=== PATIENT | male | born 1970 | race Caucasian/White ===

== ENCOUNTER 2023-12-07 13:07 | Outpatient (REF) | payer OTHER, SELFPAY ==
--- NOTE | ~2023-12-07 | MR_ITS ---
MRI OF THE BRAIN WITHOUT IV CONTRAST INDICATION: Parkinson's. COMPARISON: Brain MRI 12/07/2017. TECHNIQUE: Multiplanar multisequence MR imaging of the brain was obtained without IV contrast. FINDINGS: There is no hydrocephalus, extra-axial surface collection, or herniation. There is mild chronic microangiopathy. The major flow voids at the skull base are preserved. There is no acute infarct on diffusion-weighted imaging. There is no intracranial hemorrhage on the gradient recalled echo acquisition. The midline structures are normal. The cerebellar tonsils are normally positioned. The cerebellum and brainstem are normal. The craniocervical junction is normal. Osseous marrow signal intensity is homogenous. The visualized soft tissues are unremarkable. The right maxillary sinus is completely opacified with dense inspissated material. Moderate mucosal thickening within the ethmoid air cells bilaterally and mild mucosal thickening throughout the remaining paranasal sinuses. MR/MR head/brain wo con IMPRESSION: - No acute intracranial findings. There is mild chronic microangiopathy. - The right maxillary sinus is completely opacified with dense inspissated material. Moderate mucosal thickening within the ethmoid air cells bilaterally and mild mucosal thickening throughout the remaining paranasal sinuses.
== END 2023-12-07 13:08 | disposition home or self-care (01) ==
LOC: HO.MRI 13:07
PROVIDERS: PCP Physician Assistant Medical; Visit Provider Psychiatry & Neurology Neurology
DX: G20.A1 Parkinson's disease without dyskinesia, without mention of fluctuations (principal)
CPT/HCPCS: 70551

== ENCOUNTER 2025-02-05 13:36 | Outpatient (AMB) | payer OTHER, SELFPAY ==
--- NOTE | 2025-02-05 13:52 | MHC.OFFVIS ---
Intake Visit Reasons: Parkinson's Allergies No Known Allergies Allergy (Verified 01/30/25 09:03) Medication List - Last Reconciled 02/05/25 by Carolyne Barcenas MD atorvastatin 80 mg PO DAILY carbidopa-levodopa 25-100 mg (Sinemet) 2 tabs PO QID 90 days cyclobenzaprine 10 mg PO TID PRN enalapril maleate 10 mg PO DAILY ibuprofen 800 mg PO Q6H PRN primidone 50 mg PO BID HPI Comments Details: 54 years old man with history of polydrug abuse, depression and anxiety disorder, and symptoms of tremor, rigidity, dystonia, gait disorder, and stiffness somewhat suggestive of multiple system atrophy type of pathology. [facility] Medical History (Updated 02/05/25 @ 14:05 by Carolyne Barcenas MD) Parkinsonism Multiple system atrophy Dystonia Unspecified abnormalities of gait and mobility Tremor Depression with anxiety H/O polydrug abuse Physical Exam Neuro Other: Mental Status: Alert and oriented to person, place, and time. Normal attention. Normal spontaneous speech, fluency, and comprehension. No obvious issues with mood and memory. Affect is appropriate. Cranial Nerves: CN II: Visual adamson full to confrontation, visual acuity intact. CN III, IV, : Pupils equal, round, reactive to light and accommodation. Extraocular movements are normal. CN V: Facial sensation is normal. CN VII: Facial movements symmetrical. CN VIII: Hearing intact to bedside conversation is normal. CN IX, X: Palate elevates symmetrically. CN XI: Shoulder shrug and head turn symmetrical. CN XII: Tongue midline without atrophy or fasciculations. Moderate cogwheeling rigidity in right upper extremity with almost continuous hand and arm tremor. Mildly decreased facial expression blinking. He is in a wheelchair. At home he is able to ambulate with a walker Extrapyramidal: Full facial expressions and blinking. No rigidity. Movements are appropriate with no tremor or abnormality. Speech: Normal; no dysarthria or tremor. Assessment & Plan Assessment & Plan (1) Parkinsonism: Comment: MRI brain WO at [facility] in December 2023: WNL MRI brain at in December 2014: WNL MRI C spine at [facility] in 2014: OK. Code(s): G20.C - Parkinsonism, unspecified Category: Medical Qualifiers: Parkinsonism type: unspecified Qualified Code(s): G20.C - Parkinsonism, unspecified (2) Dystonia: Code(s): G24.9 - Dystonia, unspecified Category: Medical (3) Tremor: Code(s): R25.1 - Tremor, unspecified Category: Medical Plan Impression: a: Parkinsonian syndrome with bradykinesia, tremor, dystonic posturing, and difficulty walking b: Mixed tremor c: Mood disorder Rec: a: Carbidopa/levodopa 25/100, 2, four times a day, which are helping b: Primidone 50mg twice a day Medications: New primidone 50 mg PO BID 180 tabs 1RF Refilled carbidopa-levodopa 25-100 mg (Sinemet) 2 tabs PO QID 720 tabs 1RF 90 days Coding Level of Care Code Tele Est Pt Level 4 (12567) Diagnoses Parkinsonism, unspecified Parkinsonism type G20.C Parkinsonism type: unspecified Dystonia G24.9 Tremor R25.1
--- OUTSIDE RECORDS SUMMARY | 2025-02-05 14:12 | XMS_ITS ---
Author Name [facility] Organization Unknown Care Team Organization Name Specialty Phone Email Start Date End Da nikko [facility] Jere Stewart Primary [facility] 05/17/2022
--- OUTSIDE RECORDS SUMMARY | 2025-02-05 14:12 | XMS_ITS | Clinical Summary ---
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 03/22/20 24 Active carbidopa-levodo pa CR (SINEMET CR) 50-200 mg per CR tablet Take 1 Tablet by mouth. 04/03/20 15 Active mo/Non-Adher Bndg/petrolatum (GAUZE PADS AND DRESSINGS TOP) 1 Units by Does not apply route daily. 03/22/20 24 Active diaper,brief,kevin lt,disposable misc 1 Each by Does not apply route 5 times daily. 12/03/19 16 Active methadone HCl (METHADONE ORAL) Take 66 mg by mouth daily. Active mo/Non-Adher Bndg/petrolatum (GAUZE PADS AND DRESSINGS TOP) 1 Units by Does not apply route daily. 03/22/20 24 Active lactose-reduced food (NUTRITIONAL SUPPLEMENT ORAL) Take 3 Cans by mouth daily. RANDELL-99 3 cans per day 90 cans per month 11 refills Prefers chocolate And vanilla flavors 07/27/19 24 Active primidone (MYSOLINE) 50 mg tablet Take 1 tablet by mouth 2 times daily. 02/12/20 21 Active cyclobenzaprine (FLEXERIL) 10 mg tabletIndication s:Essential (primary) hypertension TAKE 1 TABLET BY MOUTH THREE TIMES A DAY NEEDED FOR MUSCLE SPASM 270 tablet 10/22/19 25 Active atorvastatin (LIPITOR) 80 mg tablet Take 1 tablet (80 mg total) by mouth 1 (one) time each day. 90 tablet 1 10/26/19 25 Active enalapril (VASOTEC) 10 mg tablet Take 1 tablet (10 mg total) by mouth 1 (one) time each day. 90 tablet 1 10/26/19 25 Active sildenafiL (VIAGRA) 100 mg tablet Take 0.5 Tablets by mouth as needed for Erectile Dysfunction. 10 tablet 5 10/26/19 25 Active levothyroxine (SYNTHROID, LEVOTHROID) 75 mcg tablet Take 1 tablet (75 mcg total) by mouth 1 (one) time each day. 30 each 5 10/29/19 25 Active ibuprofen (ADVIL,MOTRIN) 800 mg tabletIndication s:Essential (primary) hypertension TAKE 1 TABLET BY MOUTH EVERY 6 HOURS NEEDED FOR PAIN 90 tablet 01/23/20 25 Active ibuprofen (ADVIL,MOTRIN) 800 mg tabletIndication s:Essential (primary) hypertension TAKE 1 TABLET BY MOUTH EVERY 6 HOURS NEEDED FOR PAIN 360 tablet 1 07/09/20 24 025 Discontinued Active Problems Problem Noted Date Diagnosed Date Subclinical hypothyroidism 02/03/2020 Impaired fasting blood sugar 09/13/2016 Sebaceous cyst 03/07/2016 Fecal incontinence 01/25/2016 Vascular malformation of liver 01/25/2016 Chronic hepatitis C without hepatic coma (CMS/HCC V24, CMS/HCC V28) 12/14/2015 Overview (07/16/2024): Chronic Hepatitis C Genotype 1A. Tx Started 07/16/16 Harvoni 90-400 mg. Take 1 tab daily for 12 Weeks. End Date 10/15/16. SVR Achieved 01/31/17 Low back pain without sciatica 11/02/2015 Parkinson's disease (tremor, stiffness, slow motion, unstable posture) (CMS/HCC V24, CMS/HCC V28) 10/14/2015 Ataxia 03/18/2015 Overview (07/16/2024): Seeing Dr. Barcenas started on carbidopa/levodopa Spasticity 03/18/2015 Hyperlipidemia 03/03/2015 Marijuana use 01/15/2015 Anxiety and depression 12/22/2014 Cephalalgia 12/22/2014 HTN (hypertension), benign 12/22/2014 Hx of substance abuse ([facility] V24, [facility] V28) 12/22/2014 Left-sided weakness 12/22/2014 Recurrent major depression ([facility] V24) 015 Tremor 12/22/2014 Unsteady gait 12/22/2014 Encounters Date Type Department Care Team Description 01/28/2025 Telephone Lung Screening Program - [address] [phone] Kareen Paulino MA Appointment (Lung Screening Enrollment) 01/27/2025 2:00 PM EDT Office Visit Lung Screening Program - [address] [phone] Fahad Felix PA Tobacco use disorder (Primary Dx) 12/05/2024 Telephone Adult Medicine [address] [phone] Jere Stewart PA pt 1 from Last 3 Months Immunizations Name Administration Dates Next Due Hepatitis A-Hepatitis B Adult (Twinrix) 18yo and older 01/04/2016,12/03/2015 Influenza Quadravalent, MDCK , 0.5ml, preservative free (Flucelvax) 6mo and older 08/06/2021,06/21/2019 Moderna SARS-CoV-2 COVID-19, mRNA, LNP-S, preservative free 02/07/2022 Tdap Tetanus diptheria acell ular pertussis (Boostrix; Adacel) 7yo and older 08/31/2016 Surgical History Surgery Date Site/Laterality Comments OTHER SURGICAL HISTORY PROCEDURE: DENIES PREVIOUS SURGERY Medical History Medical History Date Comments Parkinson disease ([facility] V24, [facility] V28) DX:Parkinson disease (HCC) Hypertension DX:Hypertension Anxiety DX:Anxiety Depression DX:Depression Fecal incontinence DX:Fecal inco ntinence Family History Medical History Relation Name Comments Other: HIV Father Other: HIV Mother Colon cancer Neg Hx Relation Name Status Comments Brother Alive Father hiv Mother hiv Sister Alive Social History Tobacco Use Types Packs/Day Years Used Date Smoking Tobacco: Every Day Cigarettes 0.5 39.3 Started: 1985 Smokeless Tobacco: Never Tobacco Cessation:Ready to Q uit: Not Asked; Counseling Given: Not Answered Alcohol Use Standard Drinks/Week Comments No 0 (1 standard drink = 0.6 oz pur e alcohol) Sex and Gender Information Value Date Recorded Sex Assigned at Not on file Legal Sex Male 9:02 AM EST Gender Identity Not on file Sexual Orientation Not on file Obstetrics History Last Filed Vital Signs Vital Sign Reading Time Taken Comments Blood Pressure 100/60 10/25/2024 3:26 PM EDT Pulse 83 10/25/2024 3:26 PM EDT Temperature 36.9 C (98.4 F) 01/27/2025 2:03 PM EDT Respiratory Rate 16 10/25/2024 3:26 PM EDT Oxygen Saturation 97% 10/25/2024 3:51 PM EDT Inhaled Oxygen Concentration - - Weight 71 kg (156 lb 9.6 oz) 10/25/2024 3:26 PM EDT Height 157.5 cm (5' 2 ) 10/25/2024 3:26 PM EDT Body Mass Index 28.64 10/25/2024 3:26 PM EDT Plan of Treatment Upcoming Encounters Date Type Department Care Team (Late st Contact Info) Description 02/24/2025 1:15 PM EDT Office Visit Adult Medicine [facility] [address], [place] [phone] Pilar Bales PA [address], [place] 03/03/2025 2:45 PM EDT Appointment [facility] CT Scan [address] [place] [phone] Health Maintenance Due Date Last Done Comments Hepatitis A Vaccines (3 of 3 - Hep A Twinrix risk 3-dose series) 06/05/2016 01/04/2016, 12/03/2015 Hepatitis B Vaccines (3 of 3 - Hep B Twinrix 3-dose series) 06/05/2016 01/04/2016, 12/03/2015 Colorectal Cancer Screening: Stool Based Tests (FOBT/FIT) 06/18/2022 Social Influencers of Health Screening 06/18/2022 Zoster Vaccines (1 of 2) 2022 COVID-19 Vaccine (4 - 2023-2 5 season) 2024 02/07/2022, 10/15/2020, 09/18/2020 Depression Screening 07/10/2024 Influenza Vaccine (#1) 2025 , 06/21/2019 Hypertension/CHF/CAD Annual BMP Blood Test 03/15/2025 03/15/2024, 03/15/2024 DTaP,Tdap,and Td Vaccines (2 - Td or Tdap) 08/31/2026 08/31/2016 Cholesterol Screening (Lipid Panel) 03/15/2029 03/15/2024, 03/15/2024 HIV Screening Completed 01/15/2015 Hepatitis C Screening Completed 01/25/2016 HIB Vaccines Aged Out No longer eligi ble based on patient's age to complete this topic HPV Vaccines Aged Out No longer eligi ble based on patient's age to complete this topic IPV Vaccines Aged Out No longer eligi ble based on patient's age to complete this topic MMR Vaccines Aged Out No longer eligi ble based on patient's age to complete this topic Meningococcal ACWY Vaccine Aged Out N o longer eligible based on patient's age to complete this topic Meningococcal B Vaccine Aged Out No l onger eligible based on patient's age to complete this topic Pneumococcal Vaccine: 50+ Years Discontinued RSV Immunization Patients Under 20 months Aged Out No longer eligible based on patient's age to complete this topic Varicella Vaccines Aged Out No longer eligible based on patient's age to complete this topic Procedures Procedure Name Priority Date/Time Associated Diagnosis Comments ANNUAL BMP BLOOD TEST Routine 03/15/2024 LIPID PANEL Routine 03/15/2024 HEPATITIS C SCREENING Routine 01/25/2016 HIV SCREENING Routine 01/15/2015 from Last 3 Months or Most Recently Relevant to Health Maintenance Results * Annual BMP Blood Test (03/15/2024) Pathologist [facility] Annual BMP Blood Test Abstracted [facility] Provider HEALTH MAINTENANCE Final Result * Lipid panel (03/15/2024) [facility] LDL/HDL Ratio 4 0 - 4 Triglycerides 129 0 - 150 mg/dL Cholesterol 154 0 - 200 mg/dL HDL 40 >=40 mg/dL LDL Cholesterol 89 0 - 100 mg/dL Blood Venous blood specimen / Unknown [facility] Provider LAB BLOOD ORDERABLES Glendy l Result * Hepatitis C Screening (01/25/2016) [facility] Hepatitis C Screening Abstracted [facility] Provider HEALTH MAINTENANCE Final Result * HIV Screening (01/15/2015) [facility] HIV Screening Abstracted [facility] Provider HEALTH MAINTENANCE Final Result from Last 3 Months or Most Recently Relevant to Health Maintenance Insurance * Guarantor: Jario Rausch Account Type Relation to Patient Date of Phone Billing Address Personal/Family Self 1970 [address] [place] [address] [facility] [employer] 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
== END 2025-02-05 14:06 | disposition home or self-care (01) ==
LOC: HO.HSM 13:36
PROVIDERS: PCP Physician Assistant Medical; Visit Provider Psychiatry & Neurology Neurology
DX: G20.C Parkinsonism, unspecified (principal); G24.9 Dystonia, unspecified; R25.1 Tremor, unspecified
CPT/HCPCS: 99214